=== PATIENT | female | born 1965 | race African-American/Black ===

== ENCOUNTER 2020-09-24 10:54 | Emergency (ER) | payer MEDICARE ==
[~2020-09-24] VITALS: Ht 170.2 cm; Wt 132.4 kg
[~2020-09-24 10:54] MED LIST: AMLODIPINE BESYL5 MG PO; HUMALOG100 UNIT/1; LANTUS100 UNITS/ SC; LEVOTHYROXINE137 MCG PO; PANTOPRAZOLE SO40 MG PO; PRAVACHOL40 MG PO; PROAIR HFA INH8.5 GM PO
[2020-09-24] MEDS ORDERED: SODIUM CHLORIDE 0.9% 1000ML 1,000 ML IV STA ×2 (11:29)
[2020-09-24] MEDS ORDERED: KETOROLAC TROMETHAMINE 30 MG/ML VIAL IV ONE (11:30)
[2020-09-24] MEDS ORDERED: FAMOTIDINE 20 MG/2 ML VIAL IV ONE ×2 (11:30→11:47)
[2020-09-24] MEDS ORDERED: ONDANSETRON HCL INJ 2MG/ML 2ML 2 MG/ML VIAL IV ONE (11:30)
[2020-09-24] MEDS ORDERED: MAALOX MAXIMUM355 ML PO (11:39)
[2020-09-24] MEDS ORDERED: FAMOTIDINE20 MG PO (11:39)
[2020-09-24] MEDS ORDERED: ZOFRAN4 MG PO (11:39)
[2020-09-24] MEDS ORDERED: KETOROLAC TROMETHAMINE 30 MG/ML VIAL ONE (11:46)
[2020-09-24] MEDS ORDERED: SODIUM CHLORIDE 0.9% 1000ML 2,000 ML ONE (11:47)
[2020-09-24] MEDS ORDERED: ONDANSETRON HCL INJ 2MG/ML 2ML 2 MG/ML VIAL ONE (11:50)
[2020-09-24] MEDS ORDERED: CEFTRIAXONE SOD 1 GM VIAL IV ONE (12:00)
[2020-09-24] MEDS ORDERED: INSULIN REGULAR, HUMAN 100 UNIT/1 ML 3ML VIAL IV ONE (12:00)
[2020-09-24] MEDS ORDERED: CEFDINIR300 MG PO (12:06)
[2020-09-24] MEDS ORDERED: ULTRAM 50MG50 MG PO (12:11)
[2020-09-24] MEDS ORDERED: CEFTRIAXONE SOD 1 GM VIAL ONE (12:18)
[2020-09-24] MEDS ORDERED: INSULIN REGULAR, HUMAN 100 UNIT/1 ML 3ML VIAL ONE (12:19)
[2020-09-24 12:57] VITALS: BP 167/85
== END 2020-09-24 13:02 | disposition home or self-care (01) ==
LOC: FSED 11:30
DX: R11.2 Nausea with vomiting, unspecified (principal); E86.0 Dehydration; K52.9 Noninfective gastroenteritis and colitis, unspecified; N39.0 Urinary tract infection, site not specified; N17.9 Acute kidney failure, unspecified; E11.65 Type 2 diabetes mellitus with hyperglycemia; I10 Essential (primary) hypertension; E78.5 Hyperlipidemia, unspecified; E03.9 Hypothyroidism, unspecified; M54.9 Dorsalgia, unspecified; G89.29 Other chronic pain
CPT/HCPCS: 36415; 80048; 80076; 81003; 82948; 85025; 96374; 96375; 96376; 99283; J0696; J1817; J1885; J2405; J7030

== ENCOUNTER 2020-09-28 08:56 | Emergency (ER) | payer MEDICARE ==
[~2020-09-28] VITALS: Ht 170.2 cm; Wt 132.4 kg
[~2020-09-28 08:56] MED LIST changes: +CEFDINIR300 MG PO; +FAMOTIDINE20 MG PO; +MAALOX MAXIMUM355 ML PO; +ULTRAM 50MG50 MG PO; +ZOFRAN4 MG PO
[2020-09-28] MEDS ORDERED: HYDRALAZINE HCL 20 MG/ML VIAL IV ONE (09:18)
[2020-09-28] MEDS ORDERED: ONDANSETRON HCL INJ 2MG/ML 2ML 2 MG/ML VIAL IV ONE (09:18)
[2020-09-28] MEDS ORDERED: SODIUM CHLORIDE 0.9% 50ML 50 ML ONE (11:44)
[2020-09-28] MEDS ORDERED: IOPAMIDOL 370 MG/ML 200 ML INFUS..BTL INJ ONE (11:45)
[2020-09-28] MEDS ORDERED: HYDRALAZINE HCL 20 MG/ML VIAL ONE (12:17)
[2020-09-28] MEDS ORDERED: SODIUM CHLORIDE 0.9% 500ML 500 ML IV STA (12:19)
[2020-09-28] MEDS ORDERED: SODIUM CHLORIDE 0.9% 500ML 500 ML ONE (12:24)
[2020-09-28 12:43] VITALS: BP 173/84
== END 2020-09-28 12:45 | disposition home or self-care (01) ==
LOC: FSED 09:30
DX: R07.9 Chest pain, unspecified (principal); R06.02 Shortness of breath; R11.2 Nausea with vomiting, unspecified; N28.9 Disorder of kidney and ureter, unspecified; R10.30 Lower abdominal pain, unspecified; E11.65 Type 2 diabetes mellitus with hyperglycemia; I10 Essential (primary) hypertension; E78.5 Hyperlipidemia, unspecified; K21.9 Gastro-esophageal reflux disease without esophagitis; E03.9 Hypothyroidism, unspecified
CPT/HCPCS: 71260; 74176; 80048; 80076; 81003; 82553; 83880; 84484; 85025; 85610; 96374; 99284; J0360; J7040; Q9967

== ENCOUNTER 2021-04-27 13:26 | Emergency (ER) | payer MEDICARE ==
[~2021-04-27] VITALS: Ht 170.2 cm; Wt 132.4 kg
[2021-04-27 14:23] VITALS: BP 167/88
== END 2021-04-27 14:20 | disposition home or self-care (01) ==
LOC: ER 13:36
DX: I12.9 Hypertensive chronic kidney disease with stage 1 through stage 4 chronic kidney disease, or unspecified chronic kidney disease (principal); E11.22 Type 2 diabetes mellitus with diabetic chronic kidney disease; N18.9 Chronic kidney disease, unspecified; E78.5 Hyperlipidemia, unspecified; K21.9 Gastro-esophageal reflux disease without esophagitis; Z98.84 Bariatric surgery status
CPT/HCPCS: 93005; 99284

== ENCOUNTER 2025-01-01 18:39 | Emergency (ER) | payer MEDICARE, OTHER ==
[~2025-01-01] VITALS: Ht 170.2 cm; Wt 132.4 kg
[2025-01-01] MEDS: ACETAMINOPHEN 325 MG TAB PO ONE (19:47)
[2025-01-01] MEDS ORDERED: CYCLOBENZAPRINE10 MG PO (22:40)
[2025-01-01 22:41] VITALS: PULSE 66; RESP 17; TEMP 98
[2025-01-01 22:46] VITALS: BP 117/58; PULSE 66; RESP 17; TEMP 98; O2SAT 97
== END 2025-01-01 22:51 | disposition home or self-care (01) ==
LOC: FSED 19:17
DX: S16.1XXA Strain of muscle, fascia and tendon at neck level, initial encounter (principal); M54.50 Low back pain, unspecified; V43.52XA Car driver injured in collision with other type car in traffic accident, initial encounter; Y92.488 Other paved roadways as the place of occurrence of the external cause; I12.9 Hypertensive chronic kidney disease with stage 1 through stage 4 chronic kidney disease, or unspecified chronic kidney disease; E11.22 Type 2 diabetes mellitus with diabetic chronic kidney disease; N18.9 Chronic kidney disease, unspecified; E03.9 Hypothyroidism, unspecified; E78.5 Hyperlipidemia, unspecified; K21.9 Gastro-esophageal reflux disease without esophagitis; G89.29 Other chronic pain; Z98.84 Bariatric surgery status
CPT/HCPCS: 72125; 72131; 99284